=== PATIENT | female | born 1985 | race Caucasian/White ===

== ENCOUNTER 2018-06-18 15:10 | Inpatient (IN) | payer OTHER ==
[2018-06-18 17:21] LABS: RUPTURE FETAL MEMBRANES POSITIVE (NEGATIVE)
[2018-06-18] MEDS ORDERED: MISOPROSTOL 200 MCG TAB PR ×2 (18:00→23:30)
[2018-06-18] MEDS ORDERED: OXYTOCIN 30 UNITS/LR 500 ML IV ×2 (18:00→23:30)
[2018-06-18] MEDS ORDERED: METHYLERGONOVINE 0.2 MG INJ IM ×2 (18:00→23:30)
[2018-06-18] MEDS ORDERED: CARBOPROST 250 MCG INJ IM ×2 (18:00→23:30)
[2018-06-18 18:10] LABS: ADD MAN DIFF? NO
[2018-06-18 18:12] LABS: BASOPHILS % 0.3 % (0.0-2.0); EOSINOPHILS # 0.2 10^3/ul (0.0-0.5); HEMATOCRIT 34.5 % (37.0-47.0); HEMOGLOBIN 11.6 g/dl (12.0-16.0); LYMPHOCYTES % 23.4 % (15.0-51.0); MEAN CORPUSCULAR HEMOGLOBIN 26.5 pg (29.0-33.0); MEAN CORPUSCULAR HGB CONC 33.6 g/dl (32.0-37.0); MEAN CORPUSCULAR VOLUME 78.9 fl (82.0-101.0); MEAN PLATELET VOLUME 10.8 fl (7.4-10.4); MONOCYTE # 0.8 10^3/ul (0.3-0.9); MONOCYTES % 9.6 % (0.0-11.0); NEUTROPHIL # 5.6 10^3/ul (1.6-7.5); NEUTROPHILS % 64.2 % (39.0-77.0); PLATELET COUNT 221 10^3/UL (140-415); RED BLOOD COUNT 4.37 10^6/ul (4.20-5.40); RED CELL DISTRIBUTION WIDTH 14.5 % (11.5-14.5)
[2018-06-18 18:12] LABS: WHITE BLOOD COUNT 8.7 10^3/ul (4.8-10.8)
[2018-06-18] MEDS: LACTATED RINGER'S 1,000 ML IV ×2 (18:12→19:55)
[2018-06-18 18:33] LABS: PARTIAL THROMBOPLASTIN TIME 24.1 Sec (25.0-35.0)
[2018-06-18 18:38] LABS: INR 0.81; PROTIME 11.2 Sec (11.9-14.9); PT RATIO 0.9
[2018-06-18] MEDS ORDERED: CITRIC ACID/SODIUM CITRATE 15 ML CUP (19:39)
[2018-06-18] MEDS: CITRIC ACID/SODIUM CITRATE 15 ML CUP PO (19:53)
[2018-06-18] MEDS ORDERED: BUPIVACAINE 0.75%/DEXT (SPINAL) 2 ML INJ (20:05)
[2018-06-18] MEDS ORDERED: morphine SULFATE/PF (10 MG/10 ML) INJ (20:06)
[2018-06-18] MEDS ORDERED: EPHEDrine SULFATE 50 MG/5 ML SYG (20:23)
[2018-06-18] MEDS ORDERED: OXYTOCIN 10 UNIT INJ ×2 (20:29→21:13)
[2018-06-18] MEDS: CEFAZOLIN 2 GM/50 ML (PMX) 50 ML IV (20:34)
[2018-06-18] MEDS ORDERED: ONDANSETRON 4 MG INJ (20:41)
[2018-06-18] MEDS ORDERED: MIDAZOLAM 1 MG/ML 2 ML INJ (20:41)
[2018-06-18] MEDS: OXYTOCIN 30 UNITS/LR 500 ML IV (22:49)
[2018-06-18] MEDS: DEXTROSE 5%-LR 1,000 ML IV (23:14)
[2018-06-18] MEDS ORDERED: METHYLERGONOVINE 0.2 MG TAB PO (23:30)
[2018-06-19] MEDS: LACTATED RINGER'S 1,000 ML IV (00:10)
[2018-06-19] MEDS ORDERED: KETOROLAC 60 MG INJ IM (00:30)
[2018-06-19] MEDS ORDERED: NALOXONE (0.4 MG/ML) INJ IV (00:30)
[2018-06-19] MEDS ORDERED: MIDAZOLAM 1 MG/ML 2 ML INJ IV (00:30)
[2018-06-19] MEDS ORDERED: ZOLPIDEM 5 MG TAB PO (00:30)
[2018-06-19] MEDS ORDERED: MEPERIDINE 25 MG INJ IV (00:30)
[2018-06-19] MEDS ORDERED: KETOROLAC 30 MG INJ IV (00:30)
[2018-06-19] MEDS ORDERED: NALBUPHINE HCL (10 MG/1 ML) INJ IV (00:30)
[2018-06-19] MEDS ORDERED: ONDANSETRON 4 MG INJ IV (00:30)
[2018-06-19] MEDS ORDERED: DIPHENHYDRAMINE 50 MG INJ IV ×2 (00:30)
[2018-06-19] MEDS: HYDROmorphONE 0.5 MG/0.5 ML SYG IV ×3 (00:36→17:25)
[2018-06-19] MEDS: CITRIC ACID/SODIUM CITRATE 15 ML CUP PO (01:13)
[2018-06-19] MEDS: LANOLIN 7 GM TUBE TOP (01:45)
[2018-06-19] MEDS: ONDANSETRON 4 MG INJ IV (01:45)
[2018-06-19] MEDS: OXYTOCIN 30 UNITS/LR 500 ML IV (03:03)
[2018-06-19] MEDS: IBUPROFEN 800 MG TAB PO ×3 (06:00→21:48)
[2018-06-19 07:32] LABS: ADD MAN DIFF? NO
[2018-06-19 07:35] LABS: WHITE BLOOD COUNT 12.9 10^3/ul (4.8-10.8)
[2018-06-19 07:35] LABS: BASOPHILS % 0.1 % (0.0-2.0); EOSINOPHILS % 0.2 % (0.0-7.0); HEMOGLOBIN 10.1 g/dl (12.0-16.0); LYMPHOCYTES # 1.7 10^3/ul (0.8-2.9); LYMPHOCYTES % 13.4 % (15.0-51.0); MEAN CORPUSCULAR HEMOGLOBIN 25.8 pg (29.0-33.0); MEAN CORPUSCULAR HGB CONC 32.6 g/dl (32.0-37.0); MEAN CORPUSCULAR VOLUME 79.3 fl (82.0-101.0); MEAN PLATELET VOLUME 11.4 fl (7.4-10.4); MONOCYTE # 1.1 10^3/ul (0.3-0.9); MONOCYTES % 8.1 % (0.0-11.0); NEUTROPHIL # 10.1 10^3/ul (1.6-7.5); NEUTROPHILS % 77.7 % (39.0-77.0); PLATELET COUNT 200 10^3/UL (140-415); RED BLOOD COUNT 3.91 10^6/ul (4.20-5.40)
[2018-06-19] MEDS: SENNA/DOCUSATE NA (8.6MG/50MG) TAB PO ×2 (09:49→21:48)
[2018-06-19] MEDS: DEXTROSE 5%-LR 1,000 ML IV ×3 (15:47→23:14)
[2018-06-19 19:54] LABS: RAPID PLASMA REAGIN NONREACTIVE (NR)
[2018-06-19] MEDS: HYDROCODONE/APAP (5/325) TAB PO ×2 (20:00→22:59)
[2018-06-20] MEDS: IBUPROFEN 800 MG TAB PO ×3 (06:23→22:29)
[2018-06-20] MEDS: HYDROCODONE/APAP (5/325) TAB PO ×3 (06:52→22:00)
[2018-06-20] MEDS: DEXTROSE 5%-LR 1,000 ML IV ×3 (07:14→23:14)
[2018-06-20] MEDS: SENNA/DOCUSATE NA (8.6MG/50MG) TAB PO ×2 (10:22→21:08)
[2018-06-21] MEDS: HYDROCODONE/APAP (5/325) TAB PO ×2 (04:25→05:54)
[2018-06-21] MEDS: IBUPROFEN 800 MG TAB PO (05:54)
[2018-06-21] MEDS: SENNA/DOCUSATE NA (8.6MG/50MG) TAB PO (08:51)
[2018-06-21] MEDS: DEXTROSE 5%-LR 1,000 ML IV (10:45)
[2018-06-21] MEDS: MAGNESIUM HYDROXIDE 30ML CUP PO (10:48)
[2018-06-21] MEDS: MEASLES,MUMPS,RUBELLA VACCINE INJ SC* (10:50)
[2018-06-21] MEDS: DIPHTH/TET/ACEL PERTUSS (ADULT) 0.5 ML VIAL IM* (11:58)
== END 2018-06-21 16:21 | disposition home or self-care (01) | DRG 766 ==
LOC: OBT 15:10 → PP1 06-19 01:13 → L-D 15:11 → OBT 17:30 → L-D 17:30
PROVIDERS: Obstetrics & Gynecology
PROC: 10D00Z1 Extraction of Products of Conception, Low, Open Approach (ICD-10-PCS; principal; 2018-06-18)
PROC: 0UB60ZZ Excision of Left Fallopian Tube, Open Approach (ICD-10-PCS; 2018-06-18)
DX: O34.219 Maternal care for unspecified type scar from previous cesarean delivery (principal); Z37.0 Single live birth; Z3A.38 38 weeks gestation of pregnancy; N83.8 Other noninflammatory disorders of ovary, fallopian tube and broad ligament; O34.83 Maternal care for other abnormalities of pelvic organs, third trimester
CPT/HCPCS: 76818; 84112; 85025; 85610; 85730; 86592; 86850; 86900; 86901; 99464